=== PATIENT | female | born 1955 | race African-American/Black ===

== ENCOUNTER 2017-06-10 08:31 | Outpatient (CLI) | payer OTHER ==
--- NOTE | 2017-06-11 15:30 | Mammography Report ---
BILATERAL DIGITAL SCREENING MAMMOGRAM with CAD: 06/10/17 08:31:00 CLINICAL: Routine screening. COMPARISON:None available. FINDINGS: The breasts are heterogeneously dense, which may obscure small masses. No mass, architectural distortion or suspicious calcifications. IMPRESSION: No mammographic evidence of malignancy. BI-RADS CATEGORY: 1 - - Negative RECOMMENDATION: Routine mammographic screening in one year. COMMENT: Patient follow-up letters are generated by our [employer] application.
== END 2017-06-10 08:32 | disposition home or self-care (01) ==
LOC: MAMMO 08:31
PROVIDERS: ATTEND Internal Medicine
DX: Z12.31 Encounter for screening mammogram for malignant neoplasm of breast (principal)
CPT/HCPCS: 77067

== ENCOUNTER 2019-01-25 10:28 | Emergency (ER) | payer OTHER ==
--- NOTE | 2019-01-25 12:49 | Emergency Department Report ---
ED General Adult HPI - General Chief complaint: Wound/Laceration Stated complaint: BRUISING AROUND MOUTH Time Seen by Provider: 01/25/19 12:36 Source: patient Mode of arrival: Ambulatory Limitations: No Limitations - History of Present Illness Initial comments: 64-year-old female with no reported past medical history presents to the emergency department complaining of a 2-3 day history of oral bleeding which has progressed to illusion to the mouth and legs and arms. She reports no fever, chills, sweats no chest pain or palpitations no nausea no vomiting no EtOH no recent foreign travel or new medications or supplements no odynophagia or dysphagia. They attempted to use some [id number] abrasion remedy which was unsuccessful treatment. She denies having any known history of hypertension either. Reports no lotion may swelling no bloating no abdominal pain Radiation: non-radiation Severity scale (0 -10): 0 Quality: aching Worsens with: none - Related Data Allergies Allergy/AdvReac Type Severity Reaction Status Date / Time No Known Allergies Allergy Unverified 06/10/17 08:31 ED Review of Systems ROS: Stated complaint: BRUISING AROUND MOUTH Other details as noted in HPI Comment: All other systems reviewed and negative ED Past Medical Hx - Past Medical History Additional medical history: hyperlipidemia - Social History Smoking Status: Never Smoker ED Physical Exam - General Limitations: No Limitations General appearance: alert, in no apparent distress - Head Head exam: Present: atraumatic, normocephalic - Eye Eye exam: Present: normal appearance, PERRL - ENT ENT exam: Present: mucous membranes moist, other (there is gingival bleeding noted primarily on the right side of the mouth with some excoriation to the buccal mucosa posterior pharynx no exudate noted airway is patent. Voice is normal, her left aspect of her tongue has what looks like a puncture trauma) - Neck Neck exam: Present: normal inspection - Respiratory Respiratory exam: Present: normal lung sounds bilaterally. Absent: respiratory distress - Cardiovascular Cardiovascular Exam: Present: regular rate, normal rhythm. Absent: systolic murmur, diastolic murmur, rubs, gallop - GI/Abdominal GI/Abdominal exam: Present: soft, normal bowel sounds - Extremities Exam Extremities exam: Present: normal inspection - Back Exam Back exam: Present: normal inspection - Neurological Exam Neurological exam: Present: alert, oriented X3, CN II-XII intact - Psychiatric Psychiatric exam: Present: normal affect, normal mood - Skin Skin exam: Present: warm, dry, intact, normal color, petechiae (to her lower extremity bilaterally). Absent: rash ED Course Vital Signs 01/25/19 01/25/19 01/25/19 10:33 12:23 12:24 Temperature 97.5 F L 98.5 F Pulse Rate 79 78 Respiratory 16 14 19 Rate Blood Pressure 206/78 Blood Pressure 199/96 [Left] O2 Sat by Pulse 99 98 98 Oximetry ED Medical Decision Making - Lab Data Result diagrams: 01/25/19 12:44 01/25/19 12:44 - Medical Decision Making History of with petechiae, purpura,. The MB at 14. Case Was Discussed with Our Hospitalist Who Advised Us They'll Be in the Best Interest to Transfer the Patient Due To a Lack of Resources at This Facility. Case Was Discussed with the [facility] Dr. Corin Holden Brooke agreed and accepted transfer. Transfer was discussed with the patient in detail with she understands and agrees Critical care attestation.: If time is entered above; I have spent that time in minutes in the direct care of this critically ill patient, excluding procedure time. ED Disposition Clinical Impression: Thrombocytopenia Disposition: [id number]/TX-[id number] ANOTHER TYPE HLTHCARE Is pt being admited?: No Does the pt Need Aspirin: No Condition: Stable Additional Instructions: Transportation to patient to [facility]. Accepting physician Dr. Corin Holden
[2019-01-25 13:03] LABS: Hematocrit 37.5 % (30.3-42.9); Hemoglobin 12.2 gm/dl (10.1-14.3); Mean Corpuscular HGB Conc 33 % (30-34); Mean Corpuscular Volume 71 fl (79-97); Red Blood Count 5.26 M/mm3 (3.65-5.03); Red Cell Distribution Width 15.2 % (13.2-15.2)
[2019-01-25 13:12] LABS: INR 0.97 (0.87-1.13)
[2019-01-25 13:13] LABS: Partial Thromboplastin Time 32.3 Sec. (24.2-36.6)
[2019-01-25 13:20] LABS: BUN/Creatinine Ratio 18; Blood Urea Nitrogen 11 mg/dL (7-17); Calcium 8.7 mg/dL (8.4-10.2); Hemolysis Index 7
[2019-01-25 13:21] LABS: Platelet Count 14 K/mm3 (140-440)
[2019-01-25 13:24] LABS: Albumin 4.2 g/dL (3.9-5); Bilirubin,Direct 0.2 mg/dL (0-0.2)
[2019-01-25] MEDS ORDERED: DEXAMETHASONE 4 MG TAB PO STA (13:35)
--- NOTE | 2019-01-25 13:38 | Event Note ---
Date of service: 01/25/19 Face to Face: 64-year-old female presenting with petechiae, painless oral bleeding, no other additional bleeding. She endorses no obvious inciting symptoms. Denies physical pain. 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 Remainder of screening laboratory studies unremarkable. Patient will be initiated on dexamethasone therapy. Found to have elevated blood pressure, requested nursing team reconcile patient's medications. Plan to discuss with our hospital physician, and either admit to this facility, or transfer, depending on comfort level and recommendations from our internal medicine Hospital physician. Vital Signs 01/25/19 01/25/19 01/25/19 10:33 12:23 12:24 Temperature 97.5 F L 98.5 F Pulse Rate 79 78 Respiratory 16 14 19 Rate Blood Pressure 206/78 Blood Pressure 199/96 [Left] O2 Sat by Pulse 99 98 98 Oximetry Lab Results 01/25/19 01/25/19 01/25/19 Range/Units 12:44 12:44 12:44 WBC 6.1 (4.5-11.0) K/mm3 RBC 5.26 H (3.65-5.03) M/mm3 Hgb 12.2 (10.1-14.3) gm/dl Hct 37.5 (30.3-42.9) % MCV 71 L (79-97) fl MCH 23 L (28-32) pg MCHC 33 (30-34) % RDW 15.2 (13.2-15.2) % Plt Count 14 L* (140-440) K/mm3 PT 12.6 (12.2-14.9) Sec. INR 0.97 (0.87-1.13) APTT 32.3 (24.2-36.6) Sec. Sodium (137-145) mmol/L Potassium (3.6-5.0) mmol/L Chloride (98-107) mmol/L Carbon Dioxide (22-30) mmol/L Anion Gap mmol/L BUN (7-17) mg/dL Creatinine (0.7-1.2) mg/dL Estimated GFR ml/min BUN/Creatinine Ratio % Glucose (65-100) mg/dL Calcium (8.4-10.2) mg/dL Total Bilirubin 0.90 (0.1-1.2) mg/dL Direct Bilirubin 0.2 (0-0.2) mg/dL Indirect Bilirubin 0.7 mg/dL AST 29 (5-40) units/L ALT 23 (7-56) units/L Alkaline Phosphatase 94 (35-129) units/L NT-Pro-B Natriuret Pep 35.27 (0-900) pg/mL Total Protein 8.0 (6.3-8.2) g/dL Albumin 4.2 (3.9-5) g/dL Albumin/Globulin Ratio 1.1 % 01/25/19 Range/Units 12:44 WBC (4.5-11.0) K/mm3 RBC (3.65-5.03) M/mm3 Hgb (10.1-14.3) gm/dl Hct (30.3-42.9) % MCV (79-97) fl MCH (28-32) pg MCHC (30-34) % RDW (13.2-15.2) % Plt Count (140-440) K/mm3 PT (12.2-14.9) Sec. INR (0.87-1.13) APTT (24.2-36.6) Sec. Sodium 142 (137-145) mmol/L Potassium 3.6 (3.6-5.0) mmol/L Chloride 104.7 (98-107) mmol/L Carbon Dioxide 27 (22-30) mmol/L Anion Gap 14 mmol/L BUN 11 (7-17) mg/dL Creatinine 0.6 L (0.7-1.2) mg/dL Estimated GFR > 60 ml/min BUN/Creatinine Ratio 18 % Glucose 107 H (65-100) mg/dL Calcium 8.7 (8.4-10.2) mg/dL Total Bilirubin (0.1-1.2) mg/dL Direct Bilirubin (0-0.2) mg/dL Indirect Bilirubin mg/dL AST (5-40) units/L ALT (7-56) units/L Alkaline Phosphatase (35-129) units/L NT-Pro-B Natriuret Pep (0-900) pg/mL Total Protein (6.3-8.2) g/dL Albumin (3.9-5) g/dL Albumin/Globulin Ratio %
--- NOTE | 2019-01-25 14:12 | XRay Report ---
CHEST 1 VIEW INDICATION: thrombocytopenia pna. COMPARISON: None FINDINGS: Support devices: None. Heart: Within normal limits. Lungs/Pleura: No acute air space or interstitial disease. Additional findings: None. IMPRESSION: No acute findings. Signer Name: Jd Chen Jr, MD Signed: 01/25/2019 2:07 PM Workstation Name: [id number]
[2019-01-25 14:51] LABS: Hepatitis B Surface Antigen Non-Reactive (Negative); Hepatitis C Virus Antibody Reactive (NonReactive)
[2019-01-25 15:12] LABS: Basophils % (Auto) 0.7 % (0.0-1.8); Eosinophils % (Auto) 0.2 % (0.0-4.3); Hematocrit 37.8 % (30.3-42.9); Hemoglobin 12.2 gm/dl (10.1-14.3); Lymphocytes # (Auto) 0.9 K/mm3 (1.2-5.4); Lymphocytes % (Auto) 16.1 % (13.4-35.0); Mean Corpuscular HGB Conc 32 % (30-34); Mean Corpuscular Volume 72 fl (79-97); Monocytes # (Auto) 0.4 K/mm3 (0.0-0.8); Monocytes % (Auto) 7.5 % (0.0-7.3); Red Blood Count 5.26 M/mm3 (3.65-5.03); Red Cell Distribution Width 15.2 % (13.2-15.2)
[2019-01-25 15:23] LABS: Platelet Count 17 K/mm3 (140-440)
[2019-01-25 19:55] VITALS: BP 162/94
[2019-01-30 11:37] LABS: HIV-1 Antibody Differentiation SEE SCANNED RESULT; HIV-2 Antibody Differentiation SEE SCANNED RESULT
== END 2019-01-25 20:40 | disposition other institution (70) ==
LOC: ED 10:28
DX: D69.6 Thrombocytopenia, unspecified (principal); E78.5 Hyperlipidemia, unspecified
CPT/HCPCS: 36415; 71045; 80048; 80074; 80076; 83880; 84443; 85025; 85027; 85610; 85730; 86689; 86850; 86900; 86901; 99285; J8540